=== PATIENT | female | born 1935 | race Caucasian/White ===

== ENCOUNTER 2017-04-05 13:03 | Emergency (ER) | payer MEDICARE, BC ==
--- NOTE | 2017-04-05 13:45 | ERNOTE ---
Medical Problem HPI - Narrative Date of Service: 04/05/17 - General Chief Complaint: General Assessment Time Seen by Provider: 04/05/17 13:43 Source: patient Exam Limitations: no limitations - Immun/Allergies/Home Medications Immunizations: IMMUNIZATION HX Immunizations Up to Date Yes History of Influenza Vaccine No Hx Pneumococcal Vaccination No Allergies/Adverse Reactions: Allergies Sulfa (Sulfonamide Antibiotics) [Sulfa(Sulfonamide Antibiotics)] Allergy ( Unknown, Verified 04/05/17 13:13) Home Medications: HOME MEDICATIONS Calcium Carb & Citrate/Vit D3 [Calcium + Vitamin D3 Caplet] 2 tab PO DAILY 09/23 [Last Taken 08/31/16] Cyanocobalamin [Vitamin B-12] 1,000 mcg IM Q30D 03/22/15 [Last Taken Unknown] Omeprazole [Prilosec] 20 mg PO DAILY 03/22/15 [Last Taken 08/31/16] Acetaminophen [Tylenol] 650 mg PO QID PRN #0 tablet 09/03/16 [Last Taken Unknown ] Albuterol Sulfate/Ipratropium [Duoneb 2.5-0.5MG/3ML Soln] 3 ml IH Q4HRT PRN #0 nebu 09/03/16 [Last Taken Unknown] Levothyroxine Sodium [Synthroid] 75 mcg PO DAILY@0700 #30 tablet 09/03/16 [Last Taken Unknown] Multivitamins [Multivitamin Osmar] 1 cap PO DAILY capsule 09/03/16 [Last Taken Unknown] Warfarin Sodium [Coumadin] 2 mg PO TuSa@1700 #100 tablet 09/03/16 [Last Taken Unknown] Warfarin Sodium [Coumadin] 4 mg PO SuMoWeThFr@1700 #100 tablet 09/03/16 [Last Taken Unknown] Losartan Potassium [Cozaar] 25 mg PO DAILY 09/28/16 [Last Taken Unknown] - History of Present History Narrative: The way her coumadin was dispensed came out differently than before and is confusing to her, so she came her today for clarification. Timing: other Severity: mild Review of Systems - Review of Systems Constitutional: Present: no symptoms reported EYE: Present: no symptoms reported ENT: Present: no symptoms reported Respiratory: Present: no symptoms reported Cardiology: Present: no symptoms reported Gastrointestinal/Abdominal: Present: no symptoms reported Genitourinary: Present: no symptoms reported Musculoskeletal: Present: no symptoms reported Skin: Present: no symptoms reported Neurological: Present: no symptoms reported Endocrine: Present: no symptoms reported Hematologic/Lymphatic: Present: no symptoms reported Psych: Present: no symptoms reported All Other Systems: All systems neg except as marked - Patient's Past Medical History Patient History - Medical: Anemia, Arthritis, GERD, Hypothyroidism, UTI'S Patient History - Cardiac/Respiratory: Atrial Fibrillation Patient History - Cancer: No Hx of Cancer Patient History - Surgical Procedures: Hysterectomy, Total Hip Replacement, Total Knee Replacement Patient History - Other: None LMP (females 10-50): Menopausal - Family History Father Family History - Medical: , No pertinent hx Family History - Cardiac/Respiratory: CVA/Stroke Mother Family History - Medical: , No pertinent hx Family History - Cardiac/Respiratory: No pertinent hx - Social History Living Situations: home Abuse History: No History of abuse Psych History: No pertinent hx Alcohol Use: none Drug Use: none - Immunizations Immunizations Up to Date: Yes Hx Pneumococcal Vaccination: No History of Influenza Vaccine: No Physical Exam - Physical Exam General Appearance: Present: wd/wn, alert, no apparent distress Head Exam: Present: normal inspection, no evidence of injury Eye Exam: Normal inspection: bilateral, PERRL: bilateral, EOMI: bilateral Ears, Nose, Throat: Present: normal ENT inspection Neck: Present: normal inspection Respiratory: Present: no respiratory distress Cardiovascular/Chest: Present: irregularly irregular Extremity Exam: Present: normal inspection, no edema Neurological Exam: Present: alert, oriented, normal mood/affect Skin Exam: Present: normal color, warm/dry ED Progress - Vital Signs Patient's Vital Signs:: I have reviewed the patient's vital signs. Vital Signs: Vital Signs 04/05/17 04/05/17 13:09 13:40 Temperature 36.7 C Pulse Rate 102 H 105 H Respiratory 16 Rate Blood Pressure 150/98 138/98 O2 Sat by Pulse 96 98 Oximetry - Progress/Reassessment Chief Complaint: General Assessment Departure - Departure Clinical Impression: Atrial fibrillation Qualifiers: Atrial fibrillation type: chronic Qualified Code(s): I48.2 - Chronic atrial fibrillation Disposition: Home self-care Condition: Good Instructions: Atrial Fibrillation, [id number] Additional Instructions: Provided coumadin clarification
[2017-04-05 14:20] VITALS: BP 138/95
== END 2017-04-05 14:18 | disposition home or self-care (01) ==
LOC: ER 13:03
DX: I48.2 Chronic atrial fibrillation (principal); Z87.440 Personal history of urinary (tract) infections; Z79.01 Long term (current) use of anticoagulants; K21.9 Gastro-esophageal reflux disease without esophagitis; E03.9 Hypothyroidism, unspecified

== ENCOUNTER 2017-11-01 00:21 | Emergency (ER) | payer MEDICARE, BC ==
--- NOTE | 2017-11-01 00:46 | ERNOTE ---
ENT HPI Date of Service: 11/01/17 Presenting Symptoms: nosebleed Time Seen by Provider: 11/01/17 00:23 Source: patient - Immun/Allergies/Home Medications Immunizations: IMMUNIZATION HX Immunizations Up to Date Yes History of Influenza Vaccine Yes Hx Pneumococcal Vaccination Yes Allergies/Adverse Reactions: Allergies Allergy/AdvReac Type Severity Reaction Status Date / Time Sulfa (Sulfonamide Allergy Unknown Verified 11/01/17 00:36 Antibiotics) [Sulfa(Sulfonamide Antibiotics)] Home Medications: HOME MEDICATIONS Acetaminophen 650 mg PO Q6H PRN 07/04/17 [Last Taken Unknown] Calcium Carbonate/Vitamin D3 [Calcium 500 mg Chewable Tablet] 1 each PO Q4H PRN 07/04/17 [Last Taken Unknown] Calcium Citrate/Vitamin D3 [Citracal + D Maximum Caplet] 1 each PO BID 07/04/17 [Last Taken 07/04/17] Levothyroxine Sodium [Levoxyl] 75 mcg PO DAILY 07/04/17 [Last Taken 07/04/17] Losartan Potassium [Cozaar] 25 mg PO DAILY 07/04/17 [Last Taken 07/04/17] Multivitamin [Multivitamins] 1 each PO DAILY 07/04/17 [Last Taken 07/04/17] Omeprazole 20 mg PO DAILY 07/04/17 [Last Taken 07/03/17] Warfarin Sodium [Jantoven] 2 mg PO HS 07/04/17 [Last Taken 07/03/17] Warfarin Sodium [Jantoven] 4 mg PO HS 07/04/17 [Last Taken 07/02/17] Cyanocobalamin [Vitamin B-12] 1,000 mcg IM DAILY 10/31/17 [Last Taken Unknown] - History of Present Illness Narrative: 82 year old with A fib that takes Coumadin and was seen a few hours ago for epistaxis (INR 2.54). She returns to the ED due to continued bleeding in spite of the placement of a Rhinorocket. Date (Duration): 11/01/17 Severity: Present: mild ENT Location: Present: nose Prearrival Treatment: Present: other - rhinorocket in left nares Modifying Factors - Improves: Reports: nothing Modifying Factors - Worsens: Reports: nothing Associated Symptoms - ENT: Reports: denies symptoms Prior Treament: Reports: recently seen Review of Systems - Review of Systems Constitutional: Present: no symptoms reported EYE: Present: no symptoms reported ENT: Present: See HPI Respiratory: Present: no symptoms reported Cardiology: Present: no symptoms reported Gastrointestinal/Abdominal: Present: no symptoms reported Genitourinary: Present: no symptoms reported Musculoskeletal: Present: no symptoms reported Skin: Present: no symptoms reported Neurological: Present: no symptoms reported Endocrine: Present: no symptoms reported Hematologic/Lymphatic: Present: no symptoms reported - Patient's Past Medical History Patient History - Medical: Anemia, Arthritis, GERD, Hypothyroidism, UTI'S Patient History - Cardiac/Respiratory: Atrial Fibrillation Patient History - Cancer: No Hx of Cancer Patient History - Surgical Procedures: Hysterectomy, Total Hip Replacement, Total Knee Replacement Patient History - Other: None - Family History Father Family History - Medical: , No pertinent hx Family History - Cardiac/Respiratory: CVA/Stroke Mother Family History - Medical: , No pertinent hx Family History - Cardiac/Respiratory: No pertinent hx - Social History Abuse History: No History of abuse Psych History: No pertinent hx Smoking Status: Never smoker Have you smoked in the past 12 months: No Do you dip or chew tobacco: No Alcohol Use: none Drug Use: none - Immunizations Immunizations Up to Date: Yes Hx Pneumococcal Vaccination: Yes History of Influenza Vaccine: Yes Physical Exam - Physical Exam General Appearance: Present: no apparent distress Head Exam: Present: normal inspection Eye Exam: Normal inspection: bilateral Ears, Nose, Throat: Present: other - minimal to moderate bleeding from the left nostril. Neck: Present: normal inspection Respiratory: Present: no respiratory distress Cardiovascular/Chest: Present: regular rate, rhythm Gastrointestinal/Abdominal: Present: nondistended Back Exam: Present: normal inspection Extremity Exam: Present: normal inspection Neurological Exam: Present: alert, oriented, normal mood/affect Skin Exam: Present: normal color ED Progress - Results and Orders Patient's Lab Results:: I have reviewed the patient's lab results. - from previous visit. - Vital Signs Patient's Vital Signs:: I have reviewed the patient's vital signs. Vital Signs: Vital Signs 11/01/17 00:27 Temperature 36.7 C Pulse Rate 100 Respiratory 16 Rate Blood Pressure 142/92 O2 Sat by Pulse 96 Oximetry - Progress/Reassessment Chief Complaint: Nose Bleed Progress:: Improved Progress Note-Subjective: 11/01/17 01:25 No further bleeding noted at nose or pharynx, and the patient is comfortable. Hemodynamically stable. She will be observed for several hours to determine if there is a rebleed. 11/01/17 05:08 Observed frequently touching her nose. No further bleeding from the left nares. Comfortable. 11/01/17 06:10 No bleeding. Departure Clinical Impression: Epistaxis, recurrent - Departure Disposition: Home self-care Condition: Good Instructions: Nosebleed, [id number] Print Language: Wolof Additional Instructions: If there is additional bleeding return to the ED. Remove the rhinorocket on 11/02. Referrals: Aura Camacho MD [Primary Care Provider] -
[2017-11-01] MEDS ORDERED: PHENYLEPHRINE HCL 150 SPRAY BTL NS ONE (01:20)
[2017-11-01 05:56] LABS: Hematocrit 40.3 % (37.0-47.0); Hemoglobin 13.6 gm/dL (12.5-16.0); Mean Cell Volume 93.1 fl (78-100); Mean Corpuscular Hemoglobin 31.4 pg (27-31); Mean Corpuscular Hgb Conc 33.7 g/dl (32-36); Mean Platelet Volume 9.9 fl (6.0-9.5); Neutrophil # 6.4 K/mm3 (1.3-6.0); Neutrophil % 76.9 % (42-75.0); Platelet Count 182 K/mm3 (150-450); Red Blood Count 4.33 M/mm3 (4.2-5.4); Red Cell Distribution Width 13.6 % (11.5-14.0); White Blood Count 8.4 K/mm3 (4.0-10.5)
[2017-11-01 06:10] VITALS: BP 147/82
== END 2017-11-01 06:55 | disposition home or self-care (01) ==
LOC: ER 00:21
DX: R04.0 Epistaxis (principal); Z87.440 Personal history of urinary (tract) infections; I48.91 Unspecified atrial fibrillation; Z79.01 Long term (current) use of anticoagulants

== ENCOUNTER 2018-04-26 10:00 | Inpatient (IN) | payer BC, MEDICARE ==
[2018-04-26 10:56] LABS: Hematocrit 34.2 % (37.0-47.0); Hemoglobin 9.7 gm/dL (12.5-16.0); Mean Cell Volume 85.9 fl (78-100); Mean Corpuscular Hemoglobin 24.4 pg (27-31); Mean Corpuscular Hgb Conc 28.4 g/dl (32-36); Mean Platelet Volume 11.5 fl (8-12.5); Neutrophil # 6.9 K/mm3 (1.3-6.0); Neutrophil % 82.5 % (42-75.0); Platelet Count 141 K/mm3 (150-450); Red Blood Count 3.98 M/mm3 (4.2-5.4); White Blood Count 8.3 K/mm3 (4.0-10.5)
[2018-04-26 11:07] LABS: ALT 25 U/L (19-67); AST 25 U/L (0-48); Albumin * 2.9 gm/dl (3.4-5.0); Alkaline Phosphatase * 103 U/L (50-170); Anion Gap 5.3 mmol/L (6.8-13.8); BNP * 5102 pg/mL (5-550); BUN/Creatinine Ratio 24.7 (9.0-21.6); Bilirubin, Total 0.7 mg/dL (0.0-1.1); Blood Urea Nitrogen 20 mg/dL (3-23); Ca. Corrected For Albumin 9.6 mg/dL (8.4-10.2); Chloride 100 mmol/L (97-106); Glucose * 152 mg/dL (70-110); Potassium 4.3 mmol/L (3.4-4.6); Sodium 140 mmol/L (132-142); Total Protein 6.8 gm/dL (6.2-8.2); Troponin I Less than 0.017 ng/ml (0.00-0.10)
[2018-04-26 11:37] LABS: Urine Appearance Clear (CLEAR); Urine Color Yellow
[2018-04-26 11:38] LABS: Urine Bacteria None Seen; Urine Bilirubin Negative (NEGATIVE); Urine Blood Negative /ul (NEGATIVE); Urine Ketone Negative (NEGATIVE); Urine Nitrite Negative (NEGATIVE); Urine Protein Negative (NEGATIVE); Urine RBC None Seen /hpf (0-5); Urine Urobilinogen Normal (NORMAL); Urine WBC None Seen /hpf (0-5)
[2018-04-26] MEDS ORDERED: NORMAL SALINE 1,000 ML IV ONE (11:53)
--- NOTE | 2018-04-26 13:03 | ERNOTE ---
Syncope ER HPI Date of Service: 04/26/18 Stated Complaint: Not responding correctly Time Seen by Provider: 04/26/18 10:15 Source: patient, EMS notes reviewed Exam Limitations: dementia Immunizations: IMMUNIZATION HX Immunizations Up to Date Yes History of Influenza Vaccine Yes Hx Pneumococcal Vaccination Yes Allergies/Adverse Reactions: Allergies Sulfa (Sulfonamide Antibiotics) [Sulfa(Sulfonamide Antibiotics)] Allergy ( Unknown, Verified 04/20/18 09:45) Home Medications: HOME MEDICATIONS Acetaminophen 650 mg PO Q6H PRN 07/04/17 [Last Taken Unknown] Multivitamin [Multivitamins] 1 ea PO DAILY 07/04/17 [Last Taken 07/04/17] Omeprazole 20 mg PO DAILY 07/04/17 [Last Taken 07/03/17] albuterol sulfate concentrate 2.5 mg/0.5 mL solution for nebulization 2.5 mg IH QIDRT #120 ea 04/07/18 [Last Taken Unknown] Acetaminophen with Codeine [Tylenol with Codeine #3 Tablet] 1 ea PO Q4H PRN [Last Taken Unknown] Calcium Carb, Citrate/Vit D3 [Citracal + D ER Tablet] 1 ea PO DAILY 04/16/18 [ Last Taken Unknown] Levothyroxine Sodium [Synthroid] 75 mcg PO DAILY 04/16/18 [Last Taken Unknown] Metoprolol Succinate [Toprol Xl] 25 mg PO DAILY #30 tab 04/16/18 [Last Taken Unknown] azithromycin 250 mg tablet See Label Instructions PO .COMPLEX #6 tab 04/20/18 [ Last Taken Unknown] cefdinir 300 mg capsule 300 mg PO BID 10 Days #20 cap 04/20/18 [Last Taken Unknown] furosemide 20 mg tablet 20 mg PO DAILY #30 tab 04/20/18 [Last Taken Unknown] warfarin 2 mg tablet 2 mg PO QMWF #30 tab 04/22/18 [Last Taken Unknown] warfarin 3 mg tablet 3 mg PO QTUTHSASU #16 tab 04/23/18 [Last Taken Unknown] - History of Present Illness Narrative: patient resident of dementia unit had a syncopal eoisode, mild sob Prior Episodes: Present: single episode today Symptoms prior to episode: Present: light headedness, rapid heart rate Activity at time of episode: Present: standing Character of event: Present: brief (seconds) Location of Injury: Present: none Current Symptoms: Present: back to normal, shortness of breath Prior Treament: Reports: recently seen, treated by physician Review of Systems - Narrative Narrative: unable to obtain ros due to dementia - Review of Systems Respiratory: Present: shortness of breath Medical History (Last Reviewed 04/20/18 @ 09:47 by Susanne Erwin) dementia Atrial fibrillation Onset Date: Unknown Hypothyroidism (acquired) Onset Date: Unknown Pernicious anemia Onset Date: Unknown Vitamin B12 deficiency anemia Onset Date: Unknown History of fracture of left hip Onset Date: 09/03/13 History of hysterectomy Onset Date: ~1979 Surgical History: Surgical History (Last Reviewed 04/20/18 @ 09:47 by Susanne Erwin) History of colonoscopy Onset Date: ~2006 History of cystoscopy Onset Date: 06/07/11 History of hip surgery Onset Date: 09/22/12 History of knee replacement procedure of right knee Onset Date: 12/18/10 Family History: Family History (Last Reviewed 04/20/18 @ 09:47 by uSsanne Erwin) Father CVA (cerebral vascular accident) Mother Pulmonary embolism Social History: Preferred Language Kyrgyz Do you have any jew or No cultural preference? Smoking Status Never smoker Abuse History No History of abuse Psych History No pertinent hx Alcohol Use none Drug Use none Physical Exam - Physical Exam General Appearance: Present: mild distress, anxious Head Exam: Present: normal inspection, no evidence of injury Eye Exam: Normal inspection: bilateral, PERRL: bilateral, EOMI: bilateral Ears, Nose, Throat: Present: normal ENT inspection Neck: Present: normal inspection, nontender Respiratory: Present: no respiratory distress, normal breath sounds Cardiovascular/Chest: Present: regular rate, rhythm, no murmur, normal peripheral pulses Gastrointestinal/Abdominal: Present: normal bowel sounds, nontender, nondistended, soft, no organomegaly Back Exam: Present: normal inspection, normal range of motion, no CVA tenderness , no vertebral tenderness Extremity Exam: Present: normal inspection, non-tender, normal range of motion, no edema Neurological Exam: Present: alert, oriented, normal mood/affect, no motor/ sensory deficits Skin Exam: Present: normal color, warm/dry Lymphatic Exam: Present: no adenopathy ED Progress - Date and Time Seen: Date and Time: 04/26/18 12:58 conditiion unchanged - Results and Orders Patient's Lab Results:: I have reviewed the patient's lab results. - Vital Signs Patient's Vital Signs:: I have reviewed the patient's vital signs. Vital Signs: Vital Signs 04/26/18 10:05 04/26/18 10:12 04/26/18 11:01 Temperature 36.5 C Pulse Rate 115 H 107 H 120 H Respiratory Rate 34 H Blood Pressure 108/60 O2 Sat by Pulse Oximetry 96 04/26/18 11:24 04/26/18 11:57 04/26/18 12:29 Temperature Pulse Rate 107 H 109 H 101 H Respiratory Rate 32 H 30 H 27 H Blood Pressure 109/64 101/53 126/68 O2 Sat by Pulse Oximetry 90 L 100 - EKG EKG: atrial fibrillation - X-Ray X-Ray #1 X-Ray: chest Interpretation: Discd w/ radiologist - fluid overload - Progress/Reassessment Chief Complaint: Syncopal Episode Progress:: Improved - Transfer of Care Expected Disposition: Discharge Plan - Plan Plan: to admit to hosppital, case discussed with dr gillis to admit to hospital Departure Clinical Impression: Acute heart failure - Departure Disposition: Still a patient Condition: Fair Referrals: Aura Camacho MD [Primary Care Provider] -
[2018-04-26] MEDS ORDERED: FUROSEMIDE 10 MG/ML VIAL IV ONE ×2 (13:05→14:12)
[2018-04-26 14:46] LABS: Prothrombin Time (Patient) 44.5 Seconds (9.0-11.0)
[2018-04-26 15:10] LABS: INR 4.38 INR (0.90-1.10)
[2018-04-26] MEDS ORDERED: HYDROPHILIC OINTMENT 454 APPL JAR TP PRN (19:48)
[2018-04-26] MEDS ORDERED: ACETAMINOPHEN 325 MG TABLET PO PRN (19:48)
[2018-04-26] MEDS ORDERED: METOPROLOL SUCCINATE 25 MG TABLET.SA PO SCH (20:00)
[2018-04-26] MEDS ORDERED: ALBUTEROL SULFATE 2.5 MG/0.5 ML VIAL.NEB IH SCH (20:00)
[2018-04-26] MEDS ORDERED: CALCIUM CARBONATE 500 MG TAB.CHEW PO PRN (20:15)
[2018-04-26] MEDS ORDERED: MULTIVIT-MIN/FA/LYCOPEN/LUTEIN 1 TAB TABLET PO SCH (20:15)
[2018-04-26] MEDS: CALCIUM CARBONATE/VITAMIN D3 1 TAB TABLET PO SCH (20:38)
--- NOTE | 2018-04-26 20:49 | HP ---
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 PMH is significant for: A -fib, HTN, Rheumatic fever, Migraine, Mitral stenosis and Hypothyroidism. Her last hospital adm was 04/01/2018 for CHF exacerbation and pneumonia. On this adm CXR: Finding compatible with CHF/Fluid overload. Infection superimposed on chronic lung disease not excluded as well. She was given Lasix 40mg IV, nebulizer treatment and supplemented oxygen.Will continue with diuresis, strict I/O. Medical History (Last Updated 04/26/18 @ 20:39 by LISA Muniz) CHF (congestive heart failure) dementia Atrial fibrillation Onset Date: Unknown Hypothyroidism (acquired) Onset Date: Unknown Pernicious anemia Onset Date: Unknown Vitamin B12 deficiency anemia Onset Date: Unknown History of fracture of left hip Onset Date: 09/03/13 History of hysterectomy Onset Date: ~1979 Surgical History: Surgical History (Last Reviewed 04/20/18 @ 09:47 by Susanne Erwin) History of colonoscopy Onset Date: ~2006 History of cystoscopy Onset Date: 06/07/11 History of hip surgery Onset Date: 09/22/12 History of knee replacement procedure of right knee Onset Date: 12/18/10 Family History: Family History (Last Reviewed 04/20/18 @ 09:47 by Susanne Erwin) Father CVA (cerebral vascular accident) Mother Pulmonary embolism Social History: Patient Lives/Resources [place] Utilized Occupation retired Preferred Language Puerto Rican Do you have any protestant or No cultural preference? Smoking Status Former smoker Have you smoked in the past 12 No months Do you dip or chew tobacco No Abuse History No History of abuse Psych History No pertinent hx Alcohol Use none Drug Use none Review Of Systems (GEN) - Review of Systems Generalized/Overall Review: Present: No Symptoms Reported - unable to obtain ROS due to dementia Immunizations: IMMUNIZATION HX Immunizations Up to Date Yes History of Influenza Vaccine Yes Hx Pneumococcal Vaccination Yes Allergies/Adverse Reactions: Allergies Allergy/AdvReac Type Severity Reaction Status Date / Time Sulfa (Sulfonamide Allergy Unknown Verified 04/20/18 09:45 Antibiotics) [Sulfa(Sulfonamide Antibiotics)] Home Medications: HOME MEDICATIONS Acetaminophen [Tylenol] 650 mg PO Q6H PRN 04/26/18 [Last Taken Unknown] Acetaminophen with Codeine [Acetaminophen-Cod #3 Tablet] 1 each PO Q4H PRN 04/26 [Last Taken Unknown] Albuterol Sulfate [Albuterol Sulfate 2.5 MG/0.5ML] 1 vial IH Q6H 04/26/18 [Last Taken Unknown] Calcium Carb, Citrate/Vit D3 [Citracal + D ER Tablet] 1 each PO BID 04/26/18 [ Last Taken Unknown] Calcium Carbonate [Calcium] 1,000 mg PO NOW PRN 04/26/18 [Last Taken Unknown] Cefdinir 300 mg PO BID 04/26/18 [Last Taken Unknown] Furosemide [Lasix] 20 mg PO DAILY 04/26/18 [Last Taken Unknown] Hydrophilic Ointment [Aquaphilic Ointment] 1 appl TP DAILY PRN 04/26/18 [Last Taken Unknown] Levothyroxine Sodium [Levo-T] 100 mcg PO DAILY 04/26/18 [Last Taken Unknown] Metoprolol Succinate 25 mg PO DAILY 04/26/18 [Last Taken Unknown] Mv,Calcium,Min/Iron/Folic/Vitk [Essential Woman Tablet] 1 each PO DAILY [Last Taken Unknown] Omeprazole 20 mg PO DAILY 04/26/18 [Last Taken Unknown] Warfarin Sodium [Jantoven] 2 mg PO MOWEFR 04/26/18 [Last Taken Unknown] Warfarin Sodium [Jantoven] 3 mg PO SUTUTHSA 04/26/18 [Last Taken Unknown] Exam - Exam Vital Signs: Vital Signs - Last Taken Temp 36.8 C 04/26/18 19:23 Pulse 105 H 04/26/18 19:23 Resp 20 04/26/18 19:23 BP 124/73 04/26/18 19:23 Pulse Ox 90 L 04/26/18 19:23 Constitutional: Present: No distress, Elderly, Obese ENT Exam: Present: hard of hearing Eye Exam: bilateral eye: normal inspection Neck: Present: full range of motion Back Exam: Present: normal inspection Breasts: Present: Exam deferred Respiratory: Present: chest non-tender, no accessory muscle use, decreased breath sounds, crackles Cardiovascular/Chest: Present: normal peripheral pulses, no chest tenderness, systolic murmur, irregularly irregular, edema Peripheral Pulses: dorsalis-pedis (R): 2+, dorsalis-pedis (L): 2+ Abdomen: Present: Normal bowel sounds, soft, nontender, nondistended /Rectal: Present: Exam deferred Extremity: Present: lower extremity edema, pedal edema, slow capillary refill, swelling Skin Exam: Present: warm/dry Neurologic: Present: alert, normal mood/affect Appearance: Present: impaired insight, impaired recent memory Eye contact: Present: cooperative, good eye contact Thoughts: Present: no apparent hallucination Diagnostic Studies: Abnormal Lab Results 04/26/18 04/26/18 04/26/18 Range/Units 10:29 10:29 10:29 RBC 3.98 L (4.2-5.4) M/mm3 Hgb 9.7 L (12.5-16.0) gm/dL Hct 34.2 L (37.0-47.0) % MCH 24.4 L (27-31) pg MCHC 28.4 L (32-36) g/dl RDW 18.0 H (11.5-14.0) % Plt Count 141 L (150-450) K/mm3 Neutrophils % 82.5 H (42-75.0) % Lymphocytes % 7.5 L (20-51) % Monocytes % 9.4 H (0.0-9) % Neutrophils # 6.9 H (1.3-6.0) K/mm3 Lymphocytes # 0.62 L (1.5-3.5) k/mm3 PT 44.5 H (9.0-11.0) Seconds INR (Anticoag Therapy) 4.38 H* (0.90-1.10) INR Carbon Dioxide 39.0 H (24-32.6) mmol/L Anion Gap 5.3 L (6.8-13.8) mmol/L BUN/Creatinine Ratio 24.7 H (9.0-21.6) Random Glucose 152 H (70-110) mg/dL B-Natriuretic Peptide 5102 H (5-550) pg/mL Albumin 2.9 L (3.4-5.0) gm/dl Laboratory Results WBC 8.3 K/mm3 (4.0-10.5) 04/26/18 10:29 RBC 3.98 M/mm3 (4.2-5.4) L 04/26/18 10:29 Hgb 9.7 gm/dL (12.5-16.0) L 04/26/18 10:29 Hct 34.2 % (37.0-47.0) L 04/26/18 10:29 MCV 85.9 fl (78-100) 04/26/18 10:29 MCH 24.4 pg (27-31) L 04/26/18 10: MCHC 28.4 g/dl (32-36) L 04/26/18 10: RDW 18.0 % (11.5-14.0) H 04/26/18 10:29 Plt Count 141 K/mm3 (150-450) L 04/26/18 10:29 MPV 11.5 fl (8-12.5) 04/26/18 10:29 Immature Gran % (Auto) 0.40 % (0.001-0.429) 04/26/18 10:29 Immature Gran # (Auto) 0.03 K/mm3 (0.000-0.0310) 04/26/18 10:29 Neutrophils % 82.5 % (42-75.0) H 04/26/18 10:29 Lymphocytes % 7.5 % (20-51) L 04/26/18 10:29 Monocytes % 9.4 % (0.0-9) H 04/26/18 10:29 Eosinophils % 0.0 % (0.0-3.0) 04/26/18 10:29 Basophils % 0.2 % (0.0-1.0) 04/26/18 10:29 Nucleated RBC % 0.0 k/mm3 (0-1) 04/26/18 10:29 Neutrophils # 6.9 K/mm3 (1.3-6.0) H 04/26/18 10:29 Lymphocytes # 0.62 k/mm3 (1.5-3.5) L 04/26/18 10:29 Monocytes # 0.8 k/mm3 (0.0-1.0) 04/26/18 10:29 Eosinophils # 0.0 k/mm3 (0.0-0.7) 04/26/18 10:29 Absolute Basophils 0.0 k/mm3 (0.0-0.1) 04/26/18 10:29 PT 44.5 Seconds (9.0-11.0) H 04/26/18 10:29 INR (Anticoag Therapy) 4.38 INR (0.90-1.10) H* 04/26/18 10:29 Sodium 140 mmol/L (132-142) 04/26/18 10:29 Plasma Sodium 141 mmol/L (130-142) 04/26/18 10:29 Potassium 4.3 mmol/L (3.4-4.6) 04/26/18 10:29 Chloride 100 mmol/L (97-106) 04/26/18 10:29 Carbon Dioxide 39.0 mmol/L (24-32.6) H 04/26/18 10:29 Anion Gap 5.3 mmol/L (6.8-13.8) L 04/26/18 10:29 BUN 20 mg/dL (3-23) D 04/26/18 10:29 Creatinine 0.81 mg/dL (0.4-1.4) 04/26/18 10:29 Est GFR (Non-Af Amer) 72 mL/min (60-130) D 04/26/18 10:29 BUN/Creatinine Ratio 24.7 (9.0-21.6) H 04/26/18 10:29 Random Glucose 152 mg/dL (70-110) H 04/26/18 10:29 Calcium 9.0 mg/dL (7.9-10.9) 04/26/18 10:29 Calcium Adj for Albumin 9.6 mg/dL (8.4-10.2) 04/26/18 10:29 Total Bilirubin 0.7 mg/dL (0.0-1.1) 04/26/18 10:29 AST 25 U/L (0-48) 04/26/18 10:29 ALT 25 U/L (19-67) 04/26/18 10:29 Alkaline Phosphatase 103 U/L (50-170) 04/26/18 10:29 Troponin I Less than 0.017 ng/ml (0.00-0.10) 04/26/18 10:29 B-Natriuretic Peptide 5102 pg/mL (5-550) H 04/26/18 10:29 Total Protein 6.8 gm/dL (6.2-8.2) 04/26/18 10:29 Albumin 2.9 gm/dl (3.4-5.0) L 04/26/18 10:29 Urine Color Yellow 04/26/18 11:13 Urine Appearance Clear (CLEAR) 04/26/18 11:13 Urine pH 6.0 pH (5.0-7.0) 04/26/18 11:13 Ur Specific [place] 1.020 SP.GR. (1.005-1.010) 04/26/18 11:13 Urine Protein Negative mg/dL (NEGATIVE) 04/26/18 11:13 Urine Glucose (UA) Negative mg/dL (NEGATIVE) 04/26/18 11:13 Urine Ketones Negative mg/dL (NEGATIVE) 04/26/18 11:13 Urine Blood Negative /ul (NEGATIVE) 04/26/18 11:13 Urine Nitrate Negative (NEGATIVE) 04/26/18 11:13 Urine Bilirubin Negative mg/dl (NEGATIVE) 04/26/18 11:13 Urine Urobilinogen Normal EU/dl (NORMAL) 04/26/18 11:13 Ur Leukocyte Esterase Negative /ul (NEGATIVE) 04/26/18 11:13 Urine RBC None seen /hpf (0-5) 04/26/18 11:13 Urine WBC None seen /hpf (0-5) 04/26/18 11:13 Ur Epithelial Cells None seen /hpf (0-5) 04/26/18 11:13 Urine Bacteria None seen (NONE) 04/26/18 11:13 Urine Culture Comments No culture indicated 04/26/18 11:13 CXR: Finding compatible with CHF/Fluid overload. Infection superimposed on chronic lung disease not excluded as well. Assessment/Plan - Assessment/Plan (1) Hypothyroid Problem: Chronic Qualifiers: (2) GERD (gastroesophageal reflux disease) Problem: Chronic Qualifiers: (3) HTN (hypertension) Problem: Chronic Qualifiers: (4) Fall Problem: Chronic Qualifiers: (5) UTI (urinary tract infection) Assessment: will continue her Cefdinir x 10 days dose, she had just started medication for UTI while at the nursing. Problem: Acute Qualifiers: (6) Tricuspid regurgitation Problem: Chronic Qualifiers: (7) Pulmonary hypertension Problem: Chronic (8) E. coli UTI Problem: Acute (9) Atrial fibrillation Assessment: EKG- Afib on therapeutic Coumadin, INR supratherapeutic currently so will hold dose Problem: Chronic (10) CHF (congestive heart failure) Assessment: Acute on chronic CHF exacerbation Vadim lower extr pitting edema and JVD On adm BNP 51.2 on previous adm 04/01/2018 BNP 3888 Continue with IV Lasix and monitor I/O and weight daily. Low sodium diet 2D-Echo pending supplemented oxygen Problem: Acute Qualifiers: (11) Supratherapeutic INR Assessment: On adm INR>4 will hold Coumadin and monitor INR Pharmacy to dose Problem: Acute
[2018-04-26] MEDS ORDERED: CEFDINIR 300 MG CAPSULE PO SCH (21:00)
[2018-04-27] MEDS: ALBUTEROL SULFATE 2.5 MG/0.5 ML VIAL.NEB IH SCH ×2 (00:53→07:40)
[2018-04-27] MEDS: CALCIUM CARBONATE/VITAMIN D3 1 TAB TABLET PO SCH (02:17)
[2018-04-27] MEDS ORDERED: DILTIAZEM HCL 5 MG/ML VIAL IV ONE (04:35)
[2018-04-27 05:17] LABS: Hematocrit 31.8 % (37.0-47.0); Hemoglobin 8.7 gm/dL (12.5-16.0); Mean Cell Volume 87.8 fl (78-100); Mean Corpuscular Hgb Conc 27.4 g/dl (32-36); Mean Platelet Volume 10.9 fl (8-12.5); NRBC# 0.1 k/mm3 (0-1); Neutrophil # 6.2 K/mm3 (1.3-6.0); Neutrophil % 72.2 % (42-75.0); Platelet Count 106 K/mm3 (150-450); Red Blood Count 3.62 M/mm3 (4.2-5.4); Red Cell Distribution Width 18.1 % (11.5-14.0); White Blood Count 8.6 K/mm3 (4.0-10.5)
[2018-04-27 05:36] LABS: Albumin * 2.4 gm/dl (3.4-5.0); Anion Gap 13.6 mmol/L (6.8-13.8); BUN/Creatinine Ratio 21.6 (9.0-21.6); Bilirubin, Total 0.9 mg/dL (0.0-1.1); Ca. Corrected For Albumin 9.4 mg/dL (8.4-10.2); Calcium * 8.4 mg/dL (7.9-10.9); Carbon Dioxide 31.2 mmol/L (24-32.6); Potassium 4.8 mmol/L (3.4-4.6); Total Protein 5.7 gm/dL (6.2-8.2)
[2018-04-27 05:43] LABS: Troponin I 0.12 ng/ml (0.00-0.10)
[2018-04-27] MEDS ORDERED: NORMAL SALINE 1,000 ML IV PRN (05:48)
--- NOTE | 2018-04-27 05:54 | PN ---
[facility]ons Note - Interim Date: 04/27/18 Time: 05:46 Narrative: 04/27/18 05:46 I walked into a CODE BLUE with cardiopulmonary resuscitation already underway. Within check performed at my arrival was consistent with a pulseless electrical activity. Patient was given appropriate medication as noted in the nursing record. Were able to establish a pulse. At this time blood pressure was 79 of a 50s. EKG that was obtained was consistent with atrial fibrillation with rapid ventricular response. Patient was given a dose of Cardizem 20 mg in addition we proceeded to intubate patient successfully. Patient, already has IV fluid on board. Chest x-ray that was obtained was consistent with an appropriately placed intubated tube above the blane. He did come to attention to the intubation that the patient is a DO NOT INTUBATE. The phone and spoke with the patient's son and after my discussion with her he is completely fine with keeping the intubation in place onto the family is able to come to the hospital and then make an appropriate decision. Patient will be moved to the icu for further stabilization.
[2018-04-27 05:58] LABS: INR 5.31 INR (0.90-1.10)
--- NOTE | 2018-04-27 06:08 | PN ---
Progess Note - Interim Date: 04/27/18 Time: 05:30 Narrative: 04/27/18 04:30 Arrive immediately to room at the call of a code blue, CPR and ACLs protocols were already in progress and inital EKG- PEA. Appropriate medications initiated and initial EKG revealed PEA. Patient was placed on monitor for cardiac arrest and rhythm strip obtained revealed A-fib RVR, which is within the patients medical history. She was intubated and given a dose of Cardizem 20mg. Please refer to nursing note for complete dose and timing of medications. Charging Operator inform attending of patient change in condition and that she has coded and currently been intubated. Called intermediate to confirm code status and was told pt wishes to have only CPR no intubation. customs entry writer spoke with family who wishes patient remains intubated until they get here today and have her extubated and stop all medications.
[2018-04-27] MEDS ORDERED: CALCIUM CARBONATE 500 MG TAB.CHEW PO PRN (08:00)
[2018-04-27] MEDS ORDERED: FUROSEMIDE 40 MG TABLET PO SCH (08:00)
[2018-04-27] MEDS ORDERED: OMEPRAZOLE 20 MG CAPSULE.SA PO SCH (09:00)
[2018-04-27] MEDS ORDERED: PANTOPRAZOLE SODIUM 20 MG TABLET.DR PO SCH (09:00)
[2018-04-27] MEDS ORDERED: LEVOTHYROXINE SODIUM 100 MCG TABLET PO SCH (09:00)
[2018-04-27 10:51] VITALS: BP 0/0
[2018-04-27] MEDS ORDERED: WARFARIN SODIUM 1 TAB TAB PO SCH (17:00)
--- NOTE | 2018-05-03 11:41 | DS ---
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 PMH is significant for: A -fib, HTN, Rheumatic fever, Migraine, Mitral stenosis and Hypothyroidism. Her last hospital adm was 04/01/2018 for CHF exacerbation and pneumonia. On this adm CXR: Finding compatible with CHF/Fluid overload. Infection superimposed on chronic lung disease not excluded as well. She was given Lasix 40mg IV, nebulizer treatment and supplemented oxygen.Will continue with diuresis, strict I/O. HOSPITAL COURSE: The patient has advanced dementia and is unable to provide a ROS or additional information regarding why she was brought to the ED. According to staff at [facility], she was not acting like her usual self but when asked, the patient states she feels just fine. The patient was admitted for acute decompensation of chronic combined systolic and diastolic heart failure. The early AM of 2017, a code blue was initiated and the patient was intubated. ACLS protocol was followed with eventual ROSC. Unfortunately, the patient's code status was incorrectly obtained and she was supposed to be a DNI but the patient had already been intubated before this information was obtained. Family was contacted and the patient was kept intubated until the patient's son had arrived. The patient's was also at bedside. On my exam, I was unable to obtain any pupillary response (fixed), doll's eyes reflex present and no response with Babinski's test; all of which increase the likelihood of a brainstem abnormality, likely an anoxic brain injury. The family decided to one- way wean/extubate the patient and let her pass. Within a few minutes after extubation, the patient with her son and at her bedside. Procedures Performed: none - Additional Data Confirmation of as documented by pronouncing clinician: no pulse, no respirations, no heart sounds, other - pupils fixed but not dilated Family: at bedside Attending/PCP notified: Yes Attending physician: Eli Loaiza Was code activated: Yes Autopsy requested: No Nitrate Operator notified: No Organ Bank notified: Yes Hospice patient: No
== END 2018-04-27 09:45 | disposition expired | DRG 292 ==
LOC: ER 10:00 → INTOOBSV 12:58 → MS 12:58 → OBSVTOIN 14:09 → SCU 04-27 05:32
PROVIDERS: ADMIT Internal Medicine; ATTEND Internal Medicine
CPT/HCPCS: 36415; 70450; 71010; 71020; 71045; 71046; 80053; 81001; 83519; 83880; 84484; 85025; 85610; 87081; 93005; 94002; 94003; 94640; 94664; 99285